=== PATIENT | female | born 2000 | race Caucasian/White ===

== ENCOUNTER 2020-07-10 22:56 | Emergency (ER) | payer SELFPAY ==
[~2020-07-10] VITALS: Ht 170.2 cm; Wt 59.0 kg
--- NOTE | 2020-07-10 23:19 | NUR ---
PATIENT TO ER BED 9 C/O LEFT RIB PAIN ON AND OFF FOR 2x WEEKS. PATIENT STATES THAT SHE SMOKES A LOT OF WEED FROM A PEN AND ALSO DRINKS TEQUILA HEAVILY EVERY OTHER DAY. PATIENT IS AAOX4. NO SOB. AMBULTORY. BREATHIN GEVENLY AND UNLABORED ON ROOM AIR. CONNECTED TO THE MONITOR.
--- NOTE | 2020-07-10 23:22 | NUR ---
[facility]IVER FORM SIGNED.
[2020-07-11 00:21] VITALS: BP 123/77
--- NOTE | 2020-07-11 00:21 | NUR ---
Patient discharged to home in stable condition. Written and verbal after care instructions given. Patient verbalizes understanding of instruction.
== END 2020-07-11 00:21 | disposition home or self-care (01) ==
LOC: ER 22:59
DX: R07.81 Pleurodynia (principal); J45.909 Unspecified asthma, uncomplicated
CPT/HCPCS: 71100-TC